=== PATIENT | female | born 1985 | race Hispanic/Latino ===

== ENCOUNTER 2017-08-15 11:54 | Outpatient (CLI) | payer OTHER | END 2017-08-15 11:55 | disposition home or self-care (01) | LOC: BICRAD 11:54 | PROVIDERS: ATTEND Internal Medicine Rheumatology | DX: M06.1 Adult-onset Still's disease (principal) | CPT/HCPCS: 71046 ==

== ENCOUNTER 2020-02-10 12:09 | Emergency (ER) | payer OTHER, SELFPAY ==
[2020-02-10 12:59] LABS: #Lymphocytes 0.5 thou/uL (1.20-3.40); #Monocytes 0.2 thou/uL (0.11-0.59); %Lymphocytes 6.9 % (21.0-51.0); %Monocytes 2.9 % (0.0-10.0); %Neutrophils 90.2 % (42.0-75.0); Hemoglobin 8.8 g/dL (12.0-16.0); Mean Corpuscular HGB CONC 31.9 g/dL (32.0-36.0); Mean Corpuscular Hemoglobin 24.4 pg (27.0-31.0); Mean Corpuscular Volume 76.5 fL (78.0-98.0); Mean Platelet Volume 9.6 fL (7.4-10.4); Platelet Count 168 thou/uL (130-400); RBC Distribution Width 16.6 % (11.5-14.5); Red Blood Cell (RBC) Count 3.58 mill/uL (4.20-5.40); White Blood Cell (WBC) Count 7.8 thou/uL (4.8-10.8)
[2020-02-10 13:19] LABS: ALT (SGPT) 11 U/L (8-55); AST (SGOT) 57 U/L (5-34); Albumin 3.4 g/dL (3.5-5.0); Alkaline Phosphatase 54 U/L (40-110); Anion Gap 13 mmol/L (10-20); BUN (Urea Nitrogen) 8 mg/dL (7.0-18.7); Bilirubin, Total 0.6 mg/dL (0.2-1.2); Calc. Creatinine Clearance 0 mL/min (70-130); Calcium 8.5 mg/dL (7.8-10.44); Carbon Dioxide 23 mmol/L (22-29); Chloride 96 mmol/L (98-107); Estimated GFR-MDRD Greater than 90; Globulin 4.9 g/dL (2.4-3.5); Glucose 88 mg/dL (70-105); Potassium 3.9 mmol/L (3.5-5.1); Protein, Total 8.3 g/dL (6.0-8.3); Sodium 128 mmol/L (136-145)
[2020-02-10] MEDS ORDERED: Acetaminophen 500 MG TAB ONE (15:37)
[2020-02-11 12:55] LABS: SARS-CoV-2 MS2 Positive; SARS-CoV-2 N Gene Negative; SARS-CoV-2 S Gene Negative; SARS-CoV-2 orf1ab Negative
== END 2020-02-10 15:53 | disposition home or self-care (01) ==
LOC: ERS 12:09
DX: E86.0 Dehydration (principal); R50.9 Fever, unspecified; D64.9 Anemia, unspecified; E03.9 Hypothyroidism, unspecified; M19.90 Unspecified osteoarthritis, unspecified site; Z20.828 Contact with and (suspected) exposure to other viral communicable diseases; Z79.899 Other long term (current) drug therapy
CPT/HCPCS: 80053; 85025; 86900; 86901; 87635; 96360; 96361; U0003

== ENCOUNTER 2020-03-02 08:37 | Emergency (ER) | payer OTHER, SELFPAY ==
[2020-03-02 09:26] LABS: #Lymphocytes 0.4 thou/uL (1.20-3.40); #Monocytes 0.1 thou/uL (0.11-0.59); %Basophils 0.1 % (0.0-1.0); %Eosinophils 0.2 % (0.0-10.0); %Lymphocytes 4.6 % (21.0-51.0); %Monocytes 1.1 % (0.0-10.0); %Neutrophils 93.9 % (42.0-75.0); Hemoglobin 10.1 g/dL (12.0-16.0); Mean Corpuscular HGB CONC 32.3 g/dL (32.0-36.0); Mean Corpuscular Hemoglobin 24.8 pg (27.0-31.0); Mean Corpuscular Volume 76.7 fL (78.0-98.0); Mean Platelet Volume 10.3 fL (7.4-10.4); Platelet Count 155 thou/uL (130-400); RBC Distribution Width 17.3 % (11.5-14.5); Red Blood Cell (RBC) Count 4.07 mill/uL (4.20-5.40); White Blood Cell (WBC) Count 9.5 thou/uL (4.8-10.8)
[2020-03-02 09:33] LABS: BHCG - Serum Negative (NEGATIVE); Pregs Control Background? CLEAR/WHITE (CLR/WHITE); Pregs Control Bar Appear? YES (CONTROL BAR)
[2020-03-02 09:50] LABS: ALT (SGPT) 14 U/L (8-55); AST (SGOT) 47 U/L (5-34); Albumin 3.8 g/dL (3.5-5.0); Alkaline Phosphatase 57 U/L (40-110); Anion Gap 14 mmol/L (10-20); BUN (Urea Nitrogen) 12 mg/dL (7.0-18.7); Bilirubin, Total 0.7 mg/dL (0.2-1.2); Calc. Creatinine Clearance 0 mL/min (70-130); Calcium 9.1 mg/dL (7.8-10.44); Carbon Dioxide 23 mmol/L (22-29); Chloride 95 mmol/L (98-107); Estimated GFR-MDRD Greater than 90; Globulin 5.2 g/dL (2.4-3.5); Glucose 98 mg/dL (70-105); Potassium 3.8 mmol/L (3.5-5.1); Sodium 128 mmol/L (136-145)
[2020-03-02 10:06] LABS: Bacteria/HPF 4+ HPF (None Seen); Bilirubin Negative (Negative); Blood, Urine 2+ (Negative); Clarity Clear (Clear); Glucose, Urine (Dipstick) Normal (Negative); Ketone, Urine Negative (Negative); Leukocyte 250 Leu/uL (Negative); Nitrite Negative (Negative); Protein, Urine (Dipstick) 10 mg/dL (Neg-Trace); RBC/HPF 0-3 HPF (0-3); Specific Gravity, Urine 1.005 (1.002-1.036); Squamous Epithelial 0-3 HPF (0-3); Urobilinogen Normal mg/dL (Less than 2)
[2020-03-02] MEDS ORDERED: cefTRIAXone\\ROCEPHIN 1 GM VIAL ONE (10:22)
--- NOTE | 2020-03-02 10:28 | RAD ---
PORTABLE CHEST: Date: 03/02/2020 HISTORY: Fever and cough. FINDINGS: The lungs appear clear. No infiltrate identified. Heart and mediastinum appear normal. IMPRESSION: No acute findings. POS: AH
[2020-03-02] MEDS ORDERED: Ondansetron PF 4 MG/2 ML Vial ONE (10:35)
[2020-03-02] MEDS ORDERED: Iopamidol-370 76% 500 ML 1 ML ONE (11:16)
--- NOTE | 2020-03-02 12:04 | CT ---
CT PULMONARY ANGIOGRAM WITH IV CONTRAST AND 3-D POSTPROCESSING: HISTORY:Fever with chills, sore throat and headache FINDINGS: There is good contrast opacification of the pulmonary arterial vasculature without filling defects to suggest pulmonary embolism. The thoracic aorta is well opacified without aneurysm or dissection. No pleural or pericardial effusions are seen. No pneumothoraces, focal areas of consolidation or lung nodules are noted. There are prominent lymph nodes subcentimeter in the axillae and retroperitoneum. IMPRESSION: No CT evidence of pulmonary embolism.
[2020-03-02 17:49] LABS: SARS-CoV-2 MS2 Positive; SARS-CoV-2 N Gene Negative; SARS-CoV-2 S Gene Negative; SARS-CoV-2 by NAA Not Detected (NotDetected); SARS-CoV-2 orf1ab Negative
== END 2020-03-02 13:25 | disposition home or self-care (01) ==
LOC: ERS 08:37
DX: J02.9 Acute pharyngitis, unspecified (principal); R50.9 Fever, unspecified; R05 Cough; R51 Headache; R11.2 Nausea with vomiting, unspecified; Z20.828 Contact with and (suspected) exposure to other viral communicable diseases; E03.9 Hypothyroidism, unspecified; Z79.899 Other long term (current) drug therapy
CPT/HCPCS: 36415; 71045; 71275; 80053; 81003; 81015; 83605; 84703; 85025; 85379; 86140; 87040; 87077; 87086; 87186; 87635; 93005; 96361; 96365; 96366; 96375; J0696; J2405; U0003

== ENCOUNTER 2020-12-21 08:55 | Inpatient (IN) | payer SELFPAY ==
[2020-12-21 10:09] LABS: Mean Corpuscular HGB CONC 33.4 g/dL (32.0-36.0); Mean Corpuscular Hemoglobin 27.1 pg (27.0-31.0); RBC Distribution Width 15.8 % (11.5-14.5); Red Blood Cell (RBC) Count 3.68 mill/uL (4.20-5.40); White Blood Cell (WBC) Count 5.4 thou/uL (4.8-10.8)
[2020-12-21] MEDS ORDERED: Ondansetron PF 4 MG/2 ML Vial ONE (10:11)
[2020-12-21] MEDS ORDERED: Lidocaine Viscous Sol 2% 15 ml UD Cup ONE (10:11)
[2020-12-21] MEDS ORDERED: Mag-Al 1200 mg/1200 mg/30 ML UDCUP ONE (10:11)
[2020-12-21 10:28] LABS: #Lymphocytes 0.7 thou/uL (1.20-3.40); #Monocytes 0.5 thou/uL (0.11-0.59); #Neutrophils 4.2 thou/uL (1.40-6.50); %Basophils 0.1 % (0.0-1.0); %Eosinophils 0.3 % (0.0-10.0); %Lymphocytes 12.7 % (21.0-51.0); %Monocytes 8.5 % (0.0-10.0); %Neutrophils 78.4 % (42.0-75.0); Anisocytosis SLIGHT = 6-15 cells (100X) (0-5/hpf); Large Platelets SLIGHT; MDiff Complete? YES; Mean Platelet Volume 15.4 fL (7.4-10.4); Platelet Count 24 thou/uL (130-400); Platelet Morphology Comment Appears Decreased; Reflex for Review?? YES; Schistocytes SLIGHT = 2-5 cells (100X) (0-1/hpf); Tear Drops SLIGHT = 2-5 cells (100X) (0-1/hpf)
[2020-12-21 10:30] LABS: ALT (SGPT) 43 U/L (8-55); AST (SGOT) 49 U/L (5-34); Albumin 3.7 g/dL (3.5-5.0); Alkaline Phosphatase 92 U/L (40-110); Anion Gap 12 mmol/L (10-20); BUN (Urea Nitrogen) 10 mg/dL (7.0-18.7); Bilirubin, Total 1.2 mg/dL (0.2-1.2); Calc. Creatinine Clearance 0 mL/min (70-130); Calcium 9.1 mg/dL (7.8-10.44); Carbon Dioxide 22 mmol/L (22-29); Chloride 102 mmol/L (98-107); Globulin 4.8 g/dL (2.4-3.5); Glucose 84 mg/dL (70-105); Lipase 14 U/L (8-78); Potassium 4.2 mmol/L (3.5-5.1); Protein, Total 8.5 g/dL (6.0-8.3); Sodium 132 mmol/L (136-145)
[2020-12-21 10:48] LABS: Bilirubin Negative (Negative); Blood, Urine Negative (Negative); Clarity Cloudy (Clear); Glucose, Urine (Dipstick) Normal (Negative); Ketone, Urine Negative (Negative); Leukocyte Negative Leu/uL (Negative); Nitrite Negative (Negative); Protein, Urine (Dipstick) 70 mg/dL (Neg-Trace); Specific Gravity, Urine 1.029 (1.002-1.036); Urobilinogen Normal mg/dL (Less than 2); WBC/HPF 0-3 HPF (0-3); pH, Urine 7.5 (5.0-9.0)
[2020-12-21 10:49] LABS: Bacteria/HPF 1+ HPF (None Seen)
[2020-12-21 10:50] LABS: Pregnancy Test - Urine (BHCG) Negative (Negative); Pregu Control Background? CLEAR/WHITE (CLR/WHITE); Pregu Control Bar Appear? YES (CONTROL BAR); Specific Gravity 1.029 (1.002-1.036)
[2020-12-21] MEDS ORDERED: Bisacodyl 5 MG TAB PO PRN (12:34)
[2020-12-21] MEDS ORDERED: Ondansetron PF 4 MG/2 ML Vial IVP PRN (12:34)
[2020-12-21 12:49] LABS: #Lymphocytes 0.7 thou/uL (1.20-3.40); #Monocytes 0.4 thou/uL (0.11-0.59); #Neutrophils 5.3 thou/uL (1.40-6.50); %Basophils 0.2 % (0.0-1.0); %Eosinophils 0.2 % (0.0-10.0); %Lymphocytes 10.1 % (21.0-51.0); %Monocytes 6.6 % (0.0-10.0); %Neutrophils 82.9 % (42.0-75.0); Hemoglobin 9.1 g/dL (12.0-16.0); Mean Corpuscular HGB CONC 34.5 g/dL (32.0-36.0); Mean Corpuscular Hemoglobin 27.8 pg (27.0-31.0); Mean Corpuscular Volume 80.6 fL (78.0-98.0); Mean Platelet Volume 15.1 fL (7.4-10.4); Platelet Count 22 thou/uL (130-400); RBC Distribution Width 15.7 % (11.5-14.5); Red Blood Cell (RBC) Count 3.29 mill/uL (4.20-5.40); White Blood Cell (WBC) Count 6.4 thou/uL (4.8-10.8)
[2020-12-21] MEDS ORDERED: Acetaminophen 500 MG TAB ONE (13:11)
[2020-12-21 13:54] VITALS: BMI 17.6
[2020-12-21 18:39] LABS: SARS-CoV-2 PCR by NAA Not Detected (NotDetected)
[2020-12-22] MEDS: Levothyroxine Sodium 50 MCG TAB PO SCH (05:41)
[2020-12-22 06:45] LABS: Hemoglobin 9.8 g/dL (12.0-16.0); Mean Corpuscular HGB CONC 34.6 g/dL (32.0-36.0); Mean Corpuscular Hemoglobin 28.1 pg (27.0-31.0); Mean Corpuscular Volume 81.3 fL (78.0-98.0); RBC Distribution Width 15.9 % (11.5-14.5); White Blood Cell (WBC) Count 3.8 thou/uL (4.8-10.8)
[2020-12-22 07:02] LABS: Anion Gap 12 mmol/L (10-20); BUN (Urea Nitrogen) 8 mg/dL (7.0-18.7); Calc. Creatinine Clearance 79 mL/min (70-130); Calcium 8.6 mg/dL (7.8-10.44); Carbon Dioxide 22 mmol/L (22-29); Chloride 104 mmol/L (98-107); Glucose 87 mg/dL (70-105); Potassium 3.9 mmol/L (3.5-5.1); Sodium 134 mmol/L (136-145)
[2020-12-22 07:26] LABS: #Eosinphils 0.1 thou/uL (0.0-0.7); #Lymphocytes 0.6 thou/uL (1.20-3.40); #Monocytes 0.4 thou/uL (0.11-0.59); #Neutrophils 2.9 thou/uL (1.40-6.50); %Basophils 0.1 % (0.0-1.0); %Eosinophils 1.3 % (0.0-10.0); %Lymphocytes 15.3 % (21.0-51.0); %Neutrophils 74.3 % (42.0-75.0); Mean Platelet Volume 14.5 fL (7.4-10.4); Platelet Count 24 thou/uL (130-400)
[2020-12-22 07:49] LABS: Poikilocytosis SLIGHT = 6-15 cells (100X) (0-5/hpf); Polychromasia SLIGHT = 2-3 cells (100X) (0-2/hpf)
[2020-12-22 07:50] LABS: Elliptocytes SLIGHT = 2-5 cells (100X) (0-1/hpf); Large Platelets SLIGHT
[2020-12-22] MEDS: Folic Acid/Vit B Comp W-C PO SCH (08:39)
[2020-12-22] MEDS ORDERED: Methotrexate Sodium 2.5 MG TAB PO SCH (10:45)
[2020-12-22] MEDS ORDERED: predniSONE 1 MG TAB PO SCH (10:45)
[2020-12-22] MEDS ORDERED: predniSONE 20 MG TAB PO SCH (10:45)
[2020-12-22] MEDS: predniSONE 1 MG TAB PO SCH (20:32)
[2020-12-23] MEDS: Levothyroxine Sodium 50 MCG TAB PO SCH (05:25)
[2020-12-23 07:12] LABS: #Lymphocytes 0.7 thou/uL (1.20-3.40); #Monocytes 0.3 thou/uL (0.11-0.59); #Neutrophils 1.8 thou/uL (1.40-6.50); %Basophils 0.3 % (0.0-1.0); %Eosinophils 0.9 % (0.0-10.0); %Neutrophils 61.8 % (42.0-75.0); Hemoglobin 9.3 g/dL (12.0-16.0); Mean Corpuscular HGB CONC 32.2 g/dL (32.0-36.0); Mean Corpuscular Hemoglobin 26.1 pg (27.0-31.0); Mean Corpuscular Volume 81.2 fL (78.0-98.0); Mean Platelet Volume 14.8 fL (7.4-10.4); Platelet Count 23 thou/uL (130-400); RBC Distribution Width 16.1 % (11.5-14.5); Red Blood Cell (RBC) Count 3.57 mill/uL (4.20-5.40); White Blood Cell (WBC) Count 2.8 thou/uL (4.8-10.8)
[2020-12-23] MEDS ORDERED: Methotrexate Sodium 2.5 MG TAB PO SCH (09:00)
[2020-12-23] MEDS: Folic Acid/Vit B Comp W-C PO SCH (09:25)
[2020-12-23] MEDS: predniSONE 1 MG TAB PO SCH (09:26)
[2020-12-23] MEDS ORDERED: Calcium Carbonate 500 MG ChewTAB PO PRN (10:33)
[2020-12-23] MEDS ORDERED: hydrALAZINE 20 MG/ML VIAL SLOW IVP PRN (10:33)
[2020-12-23] MEDS ORDERED: Sodium Chloride 0.65% Nasal 44 ML BOT EA NARE PRN (10:33)
[2020-12-23] MEDS ORDERED: Loperamide HCl 2 MG CAP PO PRN (10:33)
[2020-12-23] MEDS ORDERED: Zolpidem Tartrate 5 MG TAB PO PRN (10:33)
[2020-12-23] MEDS ORDERED: Loratadine 10 MG TAB PO PRN (10:33)
[2020-12-23] MEDS ORDERED: GUAIFENESIN SF SOLN 200 MG/10 ML UDCUP PO PRN (10:33)
[2020-12-23] MEDS ORDERED: Cepastat Lozenges 1 LOZ PO PRN (10:33)
[2020-12-23] MEDS ORDERED: diphenhydrAMINE 25 MG CAP PO PRN (10:33)
[2020-12-23] MEDS ORDERED: HYDROcodone/Acetaminophen 5/325 mg Tablet PO PRN (10:33)
[2020-12-23] MEDS ORDERED: Senokot S 8.6-50 MG TAB PO PRN (10:33)
[2020-12-23] MEDS: methylPREDNISolone Sod Succ/PF 125 MG/2 ML VIAL IVP SCH ×3 (12:03→23:49)
[2020-12-24] MEDS: methylPREDNISolone Sod Succ/PF 125 MG/2 ML VIAL IVP SCH ×4 (05:41→23:28)
[2020-12-24] MEDS: Levothyroxine Sodium 50 MCG TAB PO SCH (05:42)
[2020-12-24 06:03] LABS: #Lymphocytes 0.5 thou/uL (1.20-3.40); #Monocytes 0.1 thou/uL (0.11-0.59); #Neutrophils 4.6 thou/uL (1.40-6.50); %Eosinophils 0.1 % (0.0-10.0); %Lymphocytes 9.6 % (21.0-51.0); %Monocytes 2.4 % (0.0-10.0); %Neutrophils 87.9 % (42.0-75.0); Hemoglobin 9.5 g/dL (12.0-16.0); Mean Corpuscular HGB CONC 33.1 g/dL (32.0-36.0); Mean Corpuscular Hemoglobin 27.4 pg (27.0-31.0); Mean Corpuscular Volume 82.6 fL (78.0-98.0); Mean Platelet Volume 14.2 fL (7.4-10.4); Platelet Count 31 thou/uL (130-400); Red Blood Cell (RBC) Count 3.45 mill/uL (4.20-5.40); White Blood Cell (WBC) Count 5.3 thou/uL (4.8-10.8)
[2020-12-24 06:23] LABS: Anion Gap 10 mmol/L (10-20); BUN (Urea Nitrogen) 13 mg/dL (7.0-18.7); Calc. Creatinine Clearance 79 mL/min (70-130); Calcium 9.1 mg/dL (7.8-10.44); Carbon Dioxide 23 mmol/L (22-29); Chloride 105 mmol/L (98-107); Glucose 130 mg/dL (70-105); Sodium 134 mmol/L (136-145)
[2020-12-24 07:03] LABS: HBCM Index 0.19 S/CO (0-0.79); HBSAg Index 0.19 S/CO (0-0.99); Hep A IgM AB Non-Reactive (NonReactive); Hep A IgM S/CO 0.28 S/CO (0-0.79); Hep B Surf Ag Non-Reactive S/CO (NonReactive); Hep C IgG Ab Non-Reactive (NonReactive); Hep C Index 0.31 S/CO (0-0.79); Hepatitis B Core IgM Abs Non-Reactive (NonReactive)
[2020-12-24] MEDS: Folic Acid/Vit B Comp W-C PO SCH (09:22)
[2020-12-25] MEDS: Levothyroxine Sodium 50 MCG TAB PO SCH (05:04)
[2020-12-25] MEDS: methylPREDNISolone Sod Succ/PF 125 MG/2 ML VIAL IVP SCH (05:04)
[2020-12-25 07:02] LABS: HIV (1/2) Antibody/Antigen Non-Reactive (NonReactive); HIV 1/2 INDEX 0.11 S/CO (<1.00)
[2020-12-25 07:12] LABS: #Lymphocytes 0.8 thou/uL (1.20-3.40); #Monocytes 0.3 thou/uL (0.11-0.59); #Neutrophils 13.6 thou/uL (1.40-6.50); %Basophils 0.1 % (0.0-1.0); %Eosinophils 0.1 % (0.0-10.0); %Lymphocytes 5.3 % (21.0-51.0); %Monocytes 2.3 % (0.0-10.0); %Neutrophils 92.3 % (42.0-75.0); Anisocytosis SLIGHT = 6-15 cells (100X) (0-5/hpf); Hemoglobin 9.3 g/dL (12.0-16.0); MDiff Complete? YES; Mean Corpuscular HGB CONC 33.7 g/dL (32.0-36.0); Mean Corpuscular Hemoglobin 27.5 pg (27.0-31.0); Mean Corpuscular Volume 81.7 fL (78.0-98.0); Mean Platelet Volume 5.6 fL (7.4-10.4); Platelet Count 54 thou/uL (130-400); Platelet Morphology Comment Appears Decreased; RBC Distribution Width 16.2 % (11.5-14.5); Red Blood Cell (RBC) Count 3.37 mill/uL (4.20-5.40); White Blood Cell (WBC) Count 14.7 thou/uL (4.8-10.8)
[2020-12-25 07:46] VITALS: BP 105/71; TEMP 98
[2020-12-25] MEDS: Folic Acid/Vit B Comp W-C PO SCH (09:30)
[2020-12-27 15:07] LABS: ANA Symphony (Qualitative) POSITIVE (Negative); ANA Symphony (Quantitative) Greater than 32.0 Ratio (< 0.7 Negative); CENP IgG Antibody 0.7 EliAU/mL (<7 Negative); Jo-1 IgG Antibody 0.5 EliAU/mL (<7 Negative); RNP70 IgG Antibody 0.4 EliAU/mL (<7 Negative); SSA/Ro IgG Antibody Greater than 240.0 EliAU/mL (<7 Negative); Scleroderma-70 IgG Antibody 1.4 EliAU/mL (<7 Negative); Smith D IgG Antibody 2.5 EliAU/mL (<7 Negative); dsDNA IgG Antibody 3.4 IU/mL (<10 Negative)
== END 2020-12-25 09:59 | disposition home or self-care (01) | DRG 813 ==
LOC: ERS 08:55 → T4-A 12:26 → OBSVTOIN 12-22 15:23
PROVIDERS: ADMIT Internal Medicine; ATTEND Internal Medicine
DX: D69.59 Other secondary thrombocytopenia (principal); D61.818 Other pancytopenia; E03.9 Hypothyroidism, unspecified; M06.9 Rheumatoid arthritis, unspecified; R74.01 Elevation of levels of liver transaminase levels; R10.11 Right upper quadrant pain; R10.13 Epigastric pain; Z20.822 Contact with and (suspected) exposure to COVID-19; T45.1X5A Adverse effect of antineoplastic and immunosuppressive drugs, initial encounter
CPT/HCPCS: 36415; 74177; 76705; 80048; 80053; 80074; 81003; 81015; 81025; 83690; 84443; 85025; 85060; 86038; 86225; 86235; 87389; 87635; 96374; G0378; J2405; J2930; J7512; J8610; U0003; U0005

== ENCOUNTER 2025-02-25 01:40 | Inpatient (IN) | payer SELFPAY ==
[2025-02-25 02:04] LABS: Analyzer IN Cardio ER; Base Excess -9.9 mEq/L (-2.0 to +3.0); Calcium, Ionized (venous) 1.08 mmol/L (1.16-1.32); Chloride (VBG) 106 mmol/L (98-106); Hematocrit-VBG 28 % (36.0-47.0); Hemoglobin (Hb) 9.5 g/dL (11.7-15.5); Potassium (VBG) 4.37 mmol/L (3.70-5.30); Sodium 133 mmol/L (133-146)
[2025-02-25] MEDS ORDERED: Cefepime 2 GM VIAL ONE (02:04)
[2025-02-25 02:09] LABS: Actual Bicarbonate (HCO3v) 14.3 mEq/L (22-28)
[2025-02-25 02:16] LABS: BHCG - Serum Negative (NEGATIVE); Pregs Control Background? CLEAR/WHITE (CLR/WHITE); Pregs Control Bar Appear? YES (CONTROL BAR)
[2025-02-25 02:26] LABS: INR-International Normal Ratio 1.1; Prothrombin Time 14.1 sec (12.0-14.7)
[2025-02-25 02:27] LABS: PTT 40.0 sec (22.9-36.1)
[2025-02-25 02:29] LABS: Lipase 130 U/L (8-78); Magnesium 1.8 mg/dL (1.6-2.6)
[2025-02-25 02:30] LABS: Acetaminophen Less than 10 mcg/mL (Less than 10); Salicylate Less than 8.0 mg/dL (Less than 8.0)
[2025-02-25 02:31] LABS: ALT (SGPT) 113 U/L (Less than 34); AST (SGOT) 412 U/L (11-34); Albumin 1.8 g/dL (3.1-4.5); Alkaline Phosphatase 372 U/L (40-110); Anion Gap 20 mmol/L (10-20); BUN (Urea Nitrogen) 27 mg/dL (7.0-18.7); Bilirubin, Total 1.9 mg/dL (0.3-1.2); Calc. Creatinine Clearance 0 mL/min (70-130); Calcium 7.7 mg/dL (7.8-10.44); Carbon Dioxide 13 mmol/L (22-29); Chloride 108 mmol/L (98-107); Globulin 3.2 g/dL (2.4-3.5); Glucose 71 mg/dL (70-105); Potassium 4.6 mmol/L (3.5-5.1); Sodium 136 mmol/L (136-145); Troponin I 0.117 ng/mL (< 0.028)
[2025-02-25 02:36] LABS: Hematocrit 26.4 % (36.0-47.0); Hemoglobin 8.5 g/dL (12.0-16.0); Mean Corpuscular Hemoglobin 29.5 pg (27.0-31.0); Mean Corpuscular Volume 91.7 fL (78.0-98.0); Platelet Count 93 10x3/uL (130-400); Red Blood Cell (RBC) Count 2.88 mill/uL (4.20-5.40); White Blood Cell (WBC) Count 0.63 10x3/uL (4.8-10.8)
[2025-02-25] MEDS ORDERED: Vancomycin 1 GM/200 ML (FROZEN) BAG ONE (02:44)
[2025-02-25] MEDS ORDERED: Ketorolac Tromethamine 30 MG (1 mL) VIAL ONE (03:21)
[2025-02-25 03:47] LABS: Anisocytosis SLIGHT = 6-15 cells HPF (0-5); Burr Cells SLIGHT = 2-5 cells HPF (0-1); Macrocytosis SLIGHT = 6-15 cells HPF (0-5); Nucleated RBC (Manual Ct) 2 % (0); Ovalocytes SLIGHT = 2-5 cells HPF (0-1); Platelet Adequacy Comment Platelets Decreased; Poikilocytosis SLIGHT = 6-15 cells HPF (0-5); Smudge Cells 4.3 %
[2025-02-25] MEDS ORDERED: Electrolyte Replacement Protocol 1 EACH IVPB PRN (04:42)
[2025-02-25] MEDS ORDERED: Senokot S 8.6-50 MG TAB PO PRN (04:50)
[2025-02-25] MEDS ORDERED: Calcium Carbonate 500 MG ChewTAB PO PRN (04:50)
[2025-02-25] MEDS ORDERED: Ondansetron PF 4 MG/2 ML Vial IVP PRN (04:50)
[2025-02-25] MEDS ORDERED: Ketamine In 0.9 % NaCl 50 MG/5 ML SYRINGE ONE (05:17)
[2025-02-25] MEDS ORDERED: Rocuronium Bromide 10 MG/ML (10ML VIAL) ONE (05:18)
[2025-02-25] MEDS ORDERED: NOREPINEPHRINE 8 MG/250 ML-D5W 250 ML ONE (05:25)
[2025-02-25] MEDS ORDERED: Fentanyl BOLUS 100 ML IVPB PRN (05:45)
[2025-02-25] MEDS ORDERED: Propofol BOLUS 1,000 MG/100 ML VIAL IV PRN (05:45)
[2025-02-25] MEDS ORDERED: DISCONTINUE PREVIOUS NARCOTIC PAIN MEDICATIONS AND BENZODIAZEPINES FS SCH (05:45)
[2025-02-25 06:02] LABS: Troponin I 0.355 ng/mL (< 0.028)
[2025-02-25 06:08] LABS: Analyzer IN Cardio ER; Base Excess (BEa) -15.9 mEq/L (-2.0 to +3.0); CO2 Tension 36.2 mmHg (35.0-45.0); Calcium, Ionized (arterial) 1.18 mmol/L (1.12-1.30); Hematocrit-ABG 32 % (36.0-47.0); Hemoglobin (Hb) 10.8 g/dL (12.0-16.0); O2 Tension (PaO2), arterial 139.4 mmHg (80.0-100.0); Potassium - ABG Lab 4.76 mmol/L (3.70-5.30)
[2025-02-25 06:11] LABS: pH, Arterial 7.140 (7.35-7.45)
[2025-02-25 06:12] LABS: ALV-art Gradient 528.350 mmHg (0-20); Actual Bicarbonate (HCO3a) 12.0 mEq/L (22-28); Puncture Site Left Radial artery
[2025-02-25] MEDS ORDERED: Esmolol 2,500 MG/250 ML 250 ML ONE (06:38)
[2025-02-25 06:53] LABS: Bacteria/HPF None Seen HPF (None Seen); CAUTI Indications for Culture Alt mental st,lethar; Glucose, Urine (Dipstick) Normal (Negative); Leukocyte Negative Leu/uL (Negative); Protein, Urine (Dipstick) 100 mg/dL (Neg-Trace); RBC/HPF 0-3 HPF (0-3); Specific Gravity, Urine 1.034 (1.002-1.036)
[2025-02-25 06:55] LABS: Cocaine Metabolite Screen Negative (Negative); THC/Cannabinoid Screen Negative (Negative); Tricyclic Screen Negative (Negative); Urine Culture Reflex No No
[2025-02-25] MEDS: Ipratropium Bromide 2.5 ml Neb NEB SCH (08:21)
[2025-02-25] MEDS: Dextrose 50% Abboject 50 ML SYRINGE ONE (08:39)
[2025-02-25] MEDS: Ventilator Sedation Protocol 1 EACH FS ONE (08:48)
[2025-02-25] MEDS: Albumin 25% 25 GM (100 mL) BOT IVPB SCH (08:48)
[2025-02-25] MEDS: Pantoprazole 40 MG VIAL IVP SCH (08:48)
[2025-02-25] MEDS ORDERED: Lidocaine 1% w/Epinephrine 1:100K 20 ML VIAL ONE (09:08)
[2025-02-25] MEDS ORDERED: Sodium Bicarbonate 2.5 MEQ/5 ML SDV ONE (09:08)
[2025-02-25] MEDS: Sodium Bicarb 50 MEQ/50 ML Abboject 8.4% SYRINGE ONE ×2 (09:21→13:52)
[2025-02-25 10:46] LABS: INR-International Normal Ratio 1.5; Prothrombin Time 17.9 sec (12.0-14.7)
[2025-02-25 10:47] LABS: PTT 56.7 sec (22.9-36.1)
[2025-02-25 10:50] LABS: Base Excess (BEa) -14.3 mEq/L (-2.0 to +3.0); CO2 Tension 33.3 mmHg (35.0-45.0); Calcium, Ionized (arterial) 1.02 mmol/L (1.12-1.30); Hematocrit-ABG 24 % (36.0-47.0); Hemoglobin (Hb) 8.0 g/dL (12.0-16.0); O2 Tension (PaO2), arterial 74.4 mmHg (80.0-100.0); Potassium - ABG Lab 3.97 mmol/L (3.70-5.30)
[2025-02-25 10:55] LABS: Actual Bicarbonate (HCO3a) 12.6 mEq/L (22-28); pH, Arterial 7.195 (7.35-7.45)
[2025-02-25 10:56] LABS: ALV-art Gradient 311.775 mmHg (0-20); Puncture Site Arterial Line
[2025-02-25] MEDS: Magnesium 2 GM/50 ML(in water) 2 GM in Premix 1 BAG IVPB SCH (10:57)
[2025-02-25] MEDS: NOREPINEPHRINE 8 MG/250 ML-D5W 250 ML ONE (10:58)
[2025-02-25 11:25] LABS: Anion Gap 20 mmol/L (10-20); BUN (Urea Nitrogen) 27 mg/dL (7.0-18.7); Calc. Creatinine Clearance 38 mL/min (70-130); Calcium 6.2 mg/dL (7.8-10.44); Carbon Dioxide 13 mmol/L (22-29); Chloride 112 mmol/L (98-107); Glucose 156 mg/dL (70-105); Potassium 4.1 mmol/L (3.5-5.1); Sodium 141 mmol/L (136-145); Troponin I 0.579 ng/mL (< 0.028)
[2025-02-25 11:43] LABS: Immunoglob - A (Total IgA) 186 mg/dL (65-421); Immunoglob - G (Total IgG) 701 mg/dL (552-1631); Immunoglob - M (Total IgM) 98 mg/dL (33-293)
[2025-02-25 12:15] VITALS: BMI 16.3
[2025-02-25] MEDS: CALCIUM GLUC 1 GM/NS 50 ML 1 GM in Premix 1 BAG IVPB SCH (12:15)
[2025-02-25 12:17] LABS: Bacteria/HPF None Seen HPF (None Seen); Glucose, Urine (Dipstick) Normal (Negative); Leukocyte Negative Leu/uL (Negative); Protein, Urine (Dipstick) 100 mg/dL (Neg-Trace); RBC/HPF 0-3 HPF (0-3); Specific Gravity, Urine 1.034 (1.002-1.036)
[2025-02-25 12:28] LABS: Yeast-Budding None Seen HPF (None Seen)
[2025-02-25] MEDS ORDERED: FILGRASTIM-AYOW 480 MCG/0.8 ML SYRINGE SC SCH (12:45)
[2025-02-25] MEDS: FILGRASTIM-AYOW 480 MCG/0.8 ML SYRINGE SC SCH (13:30)
[2025-02-25] MEDS: Sodium Bicarb 50 MEQ/50 ML Abboject 8.4% SYRINGE IVP SCH ×2 (13:37→17:32)
[2025-02-25] MEDS ORDERED: Iopamidol-370 76% 500 ML MDV (1 ML CHARGE) ONE (14:11)
[2025-02-25] MEDS: Vancomycin HCl 500 MG in NaCl 0.9% 100 ML IV SCH (15:08)
[2025-02-25 16:20] LABS: Albumin 2.2 g/dL (3.1-4.5); Anion Gap 27 mmol/L (10-20); BUN (Urea Nitrogen) 29 mg/dL (7.0-18.7); BUN/Creatinine Ratio 22.48; Calc. Creatinine Clearance 38 mL/min (70-130); Calcium 6.9 mg/dL (7.8-10.44); Carbon Dioxide 19 mmol/L (22-29); Chloride 106 mmol/L (98-107); Glucose 107 mg/dL (70-105); Magnesium 2.4 mg/dL (1.6-2.6); Potassium 3.7 mmol/L (3.5-5.1); Sodium 148 mmol/L (136-145)
[2025-02-25] MEDS: Vasopressin In 0.9 % NaCl 40 UNIT in Premix 1 BAG IV SCH (17:02)
[2025-02-25] MEDS ORDERED: Hydrocortisone Sod Succ/PF 100 mg/2 ml Vial IVP SCH (17:15)
[2025-02-25] MEDS: Hydrocortisone Sod Succ/PF 100 mg/2 ml Vial IVP SCH (17:32)
[2025-02-25 17:37] LABS: ALV-art Gradient 533.075 mmHg (0-20); Actual Bicarbonate (HCO3a) 17.4 mEq/L (22-28); Base Excess (BEa) -8.0 mEq/L (-2.0 to +3.0); CO2 Tension 34.9 mmHg (35.0-45.0); Calcium, Ionized (arterial) 0.98 mmol/L (1.12-1.30); Hematocrit-ABG 23 % (36.0-47.0); Hemoglobin (Hb) 7.7 g/dL (12.0-16.0); O2 Tension (PaO2), arterial 136.3 mmHg (80.0-100.0); Potassium - ABG Lab 3.78 mmol/L (3.70-5.30); Puncture Site Arterial Line; pH, Arterial 7.315 (7.35-7.45)
[2025-02-25] MEDS: Mupirocin 1 GM TUBE TP SCH (20:06)
[2025-02-25] MEDS: NOREPINEPHRINE 8 MG/250 ML-D5W 250 ML IVPB SCH (21:10)
[2025-02-25 21:38] LABS: ALT (SGPT) 56 U/L (Less than 34); AST (SGOT) 295 U/L (11-34); Albumin 2.3 g/dL (3.1-4.5); Alkaline Phosphatase 172 U/L (40-110); Anion Gap 32 mmol/L (10-20); BUN (Urea Nitrogen) 29 mg/dL (7.0-18.7); Bilirubin, Total 3.4 mg/dL (0.3-1.2); Calc. Creatinine Clearance 32 mL/min (70-130); Calcium 6.6 mg/dL (7.8-10.44); Carbon Dioxide 18 mmol/L (22-29); Chloride 104 mmol/L (98-107); Globulin 1.7 g/dL (2.4-3.5); Glucose 100 mg/dL (70-105); Potassium 4.2 mmol/L (3.5-5.1); Sodium 150 mmol/L (136-145)
[2025-02-25 22:21] LABS: Actual Bicarbonate (HCO3a) 18.3 mEq/L (22-28); Base Excess (BEa) -5.9 mEq/L (-2.0 to +3.0); CO2 Tension 30.6 mmHg (35.0-45.0); Calcium, Ionized (arterial) 0.88 mmol/L (1.12-1.30); Hematocrit-ABG 21 % (36.0-47.0); Hemoglobin (Hb) 7.1 g/dL (12.0-16.0); O2 Tension (PaO2), arterial 76.7 mmHg (80.0-100.0); Potassium - ABG Lab 3.90 mmol/L (3.70-5.30); Puncture Site ALINE; pH, Arterial 7.395 (7.35-7.45)
[2025-02-25 22:22] LABS: ALV-art Gradient 312.850 mmHg (0-20)
[2025-02-25 23:37] LABS: INR-International Normal Ratio 1.8; Prothrombin Time 20.8 sec (12.0-14.7)
[2025-02-25 23:39] LABS: PTT 63.7 sec (22.9-36.1)
[2025-02-25 23:55] LABS: ALT (SGPT) 56 U/L (Less than 34); AST (SGOT) 304 U/L (11-34); Albumin 2.8 g/dL (3.1-4.5); Alkaline Phosphatase 159 U/L (40-110); Anion Gap 34 mmol/L (10-20); BUN (Urea Nitrogen) 29 mg/dL (7.0-18.7); Bilirubin, Total 3.4 mg/dL (0.3-1.2); Calc. Creatinine Clearance 33 mL/min (70-130); Calcium 6.6 mg/dL (7.8-10.44); Carbon Dioxide 18 mmol/L (22-29); Chloride 102 mmol/L (98-107); Globulin 1.5 g/dL (2.4-3.5); Glucose 102 mg/dL (70-105); Magnesium 2.3 mg/dL (1.6-2.6); Potassium 4.3 mmol/L (3.5-5.1); Sodium 150 mmol/L (136-145)
[2025-02-25 23:57] LABS: Hematocrit 19.4 % (36.0-47.0); Hemoglobin 6.2 g/dL (12.0-16.0); Mean Corpuscular Hemoglobin 30.1 pg (27.0-31.0); Mean Corpuscular Volume 94.2 fL (78.0-98.0); Platelet Count 30 10x3/uL (130-400); Red Blood Cell (RBC) Count 2.06 mill/uL (4.20-5.40); White Blood Cell (WBC) Count 3.90 10x3/uL (4.8-10.8)
[2025-02-26 00:07] LABS: Anisocytosis SLIGHT = 6-15 cells HPF (0-5); Nucleated RBC (Manual Ct) 1 % (0); Platelet Adequacy Comment Platelets Decreased; Poikilocytosis SLIGHT = 6-15 cells HPF (0-5); Polychromasia SLIGHT = 2-3 cells HPF (0-2)
[2025-02-26] MEDS: Hydrocortisone Sod Succ/PF 100 mg/2 ml Vial IVP SCH (00:08)
[2025-02-26 03:42] LABS: Hematocrit 27.5 % (36.0-47.0); Hemoglobin 8.9 g/dL (12.0-16.0); Mean Corpuscular Hemoglobin 30.0 pg (27.0-31.0); Mean Corpuscular Volume 92.6 fL (78.0-98.0); Platelet Count 21 10x3/uL (130-400); Red Blood Cell (RBC) Count 2.97 mill/uL (4.20-5.40); White Blood Cell (WBC) Count 6.52 10x3/uL (4.8-10.8)
[2025-02-26 03:49] LABS: INR-International Normal Ratio 1.7; Prothrombin Time 20.4 sec (12.0-14.7)
[2025-02-26 03:50] LABS: PTT 63.5 sec (22.9-36.1)
[2025-02-26 04:01] LABS: ALT (SGPT) 65 U/L (Less than 34); AST (SGOT) 350 U/L (11-34); Albumin 2.6 g/dL (3.1-4.5); Alkaline Phosphatase 161 U/L (40-110); Anion Gap 25 mmol/L (10-20); BUN (Urea Nitrogen) 23 mg/dL (7.0-18.7); Bilirubin, Total 3.9 mg/dL (0.3-1.2); Calc. Creatinine Clearance 46 mL/min (70-130); Calcium 7.3 mg/dL (7.8-10.44); Carbon Dioxide 19 mmol/L (22-29); Chloride 105 mmol/L (98-107); Globulin 1.6 g/dL (2.4-3.5); Glucose 65 mg/dL (70-105); Magnesium 2.0 mg/dL (1.6-2.6); Potassium 4.2 mmol/L (3.5-5.1); Sodium 145 mmol/L (136-145)
[2025-02-26 04:27] LABS: Anisocytosis SLIGHT = 6-15 cells HPF (0-5); Burr Cells SLIGHT = 2-5 cells HPF (0-1); Nucleated RBC (Manual Ct) 1 % (0); Platelet Adequacy Comment Platelets Decreased; Polychromasia SLIGHT = 2-3 cells HPF (0-2); Smudge Cells 2.1 %; Toxic Granulation SLIGHT
[2025-02-26] MEDS ORDERED: Glucagon 1 MG/ML KIT IM PRN (04:46)
[2025-02-26] MEDS: Dextrose 50% Abboject 50 ML SYRINGE SLOW IVP PRN (04:50)
[2025-02-26] MEDS: Magnesium 2 GM/50 ML(in water) 2 GM in Premix 1 BAG IVPB SCH (05:45)
[2025-02-26] MEDS: Dextrose 50% Abboject 50 ML SYRINGE ONE (05:46)
[2025-02-26 07:37] LABS: Actual Bicarbonate (HCO3a) 17.1 mEq/L (22-28); Base Excess (BEa) -7.3 mEq/L (-2.0 to +3.0); CO2 Tension 31.0 mmHg (35.0-45.0); Calcium, Ionized (arterial) 1.11 mmol/L (1.12-1.30); Hematocrit-ABG 32 % (36.0-47.0); Hemoglobin (Hb) 10.8 g/dL (12.0-16.0); O2 Tension (PaO2), arterial 86.1 mmHg (80.0-100.0); Potassium - ABG Lab 4.27 mmol/L (3.70-5.30); pH, Arterial 7.360 (7.35-7.45)
[2025-02-26 07:43] LABS: ALV-art Gradient 374.250 mmHg (0-20); Puncture Site Arterial Line
[2025-02-26] MEDS: Folic Acid 1 MG TAB PO SCH (09:44)
[2025-02-26] MEDS: FILGRASTIM-AYOW 480 MCG/0.8 ML SYRINGE SC SCH (10:40)
[2025-02-26 10:47] LABS: Platelet Count 10 10x3/uL (130-400)
[2025-02-26] MEDS: Vancomycin HCl 500 MG in NaCl 0.9% 100 ML IV SCH ×2 (13:38→23:15)
[2025-02-26 15:00] LABS: Hematocrit 29.2 % (36.0-47.0); Hemoglobin 9.9 g/dL (12.0-16.0); Mean Corpuscular Hemoglobin 29.6 pg (27.0-31.0); Mean Corpuscular Volume 87.4 fL (78.0-98.0); Platelet Count 65 10x3/uL (130-400); Red Blood Cell (RBC) Count 3.34 mill/uL (4.20-5.40); White Blood Cell (WBC) Count 8.69 10x3/uL (4.8-10.8)
[2025-02-26 15:06] LABS: ALT (SGPT) 64 U/L (Less than 34); AST (SGOT) 332 U/L (11-34); Albumin 3.0 g/dL (3.1-4.5); Alkaline Phosphatase 155 U/L (40-110); Anion Gap 20 mmol/L (10-20); BUN (Urea Nitrogen) 13 mg/dL (7.0-18.7); Bilirubin, Direct 5.3 mg/dL (0.1-0.3); Bilirubin, Total 6.8 mg/dL (0.3-1.2); Calc. Creatinine Clearance 83 mL/min (70-130); Calcium 7.8 mg/dL (7.8-10.44); Carbon Dioxide 19 mmol/L (22-29); Chloride 107 mmol/L (98-107); Glucose 79 mg/dL (70-105); Potassium 4.5 mmol/L (3.5-5.1); Sodium 141 mmol/L (136-145)
[2025-02-26 15:32] LABS: Anisocytosis SLIGHT = 6-15 cells HPF (0-5); Nucleated RBC (Manual Ct) 2 % (0); Ovalocytes SLIGHT = 2-5 cells HPF (0-1); Platelet Adequacy Comment Platelets Decreased; Poikilocytosis SLIGHT = 6-15 cells HPF (0-5)
[2025-02-26 20:46] LABS: Anion Gap 16 mmol/L (10-20); BUN (Urea Nitrogen) 9 mg/dL (7.0-18.7); Calc. Creatinine Clearance 109 mL/min (70-130); Calcium 7.9 mg/dL (7.8-10.44); Carbon Dioxide 19 mmol/L (22-29); Chloride 109 mmol/L (98-107); Glucose 70 mg/dL (70-105); Potassium 4.6 mmol/L (3.5-5.1); Sodium 139 mmol/L (136-145)
[2025-02-27 01:02] LABS: Anion Gap 18 mmol/L (10-20); BUN (Urea Nitrogen) 9 mg/dL (7.0-18.7); Calc. Creatinine Clearance 107 mL/min (70-130); Calcium 7.8 mg/dL (7.8-10.44); Carbon Dioxide 21 mmol/L (22-29); Chloride 106 mmol/L (98-107); Glucose 62 mg/dL (70-105); Magnesium 1.9 mg/dL (1.6-2.6); Potassium 4.8 mmol/L (3.5-5.1); Sodium 140 mmol/L (136-145)
[2025-02-27] MEDS: Digoxin 0.5 MG/2 ML AMP SLOW IVP SCH (01:54)
[2025-02-27] MEDS: Metoprolol Tartrate 5 MG (5 mL) VIAL IVP SCH ×2 (01:58→19:01)
[2025-02-27 02:24] LABS: Hematocrit 32.2 % (36.0-47.0); Hemoglobin 11.1 g/dL (12.0-16.0); Mean Corpuscular Hemoglobin 30.0 pg (27.0-31.0); Mean Corpuscular Volume 87.0 fL (78.0-98.0); Platelet Count 8 10x3/uL (130-400); Red Blood Cell (RBC) Count 3.70 mill/uL (4.20-5.40); White Blood Cell (WBC) Count 8.64 10x3/uL (4.8-10.8)
[2025-02-27 02:32] LABS: INR-International Normal Ratio 1.3; Prothrombin Time 16.3 sec (12.0-14.7)
[2025-02-27 02:33] LABS: PTT 40.3 sec (22.9-36.1)
[2025-02-27 02:33] LABS: Vancomycin, Random 26.8 ug/mL (See Comment)
[2025-02-27 02:37] LABS: ALT (SGPT) 64 U/L (Less than 34); AST (SGOT) 325 U/L (11-34); Albumin 2.4 g/dL (3.1-4.5); Alkaline Phosphatase 136 U/L (40-110); Anion Gap 17 mmol/L (10-20); BUN (Urea Nitrogen) 9 mg/dL (7.0-18.7); Bilirubin, Total 7.0 mg/dL (0.3-1.2); Calc. Creatinine Clearance 116 mL/min (70-130); Calcium 7.5 mg/dL (7.8-10.44); Carbon Dioxide 19 mmol/L (22-29); Chloride 108 mmol/L (98-107); Globulin 1.7 g/dL (2.4-3.5); Glucose 149 mg/dL (70-105); Magnesium 1.8 mg/dL (1.6-2.6); Potassium 4.7 mmol/L (3.5-5.1); Sodium 139 mmol/L (136-145)
[2025-02-27] MEDS: Albumin 25% 25 GM (100 mL) BOT IVPB SCH (03:17)
[2025-02-27] MEDS: Sodium Bicarb 50 MEQ/50 ML Abboject 8.4% SYRINGE IVP SCH ×3 (03:17→17:53)
[2025-02-27] MEDS: Magnesium 2 GM/50 ML(in water) 2 GM in Premix 1 BAG IVPB SCH (03:17)
[2025-02-27 03:20] LABS: Anisocytosis MODERATE=16-30 cells HPF (0-5); Burr Cells SLIGHT = 2-5 cells HPF (0-1); Macrocytosis SLIGHT = 6-15 cells HPF (0-5); Nucleated RBC (Manual Ct) 1 % (0); Ovalocytes SLIGHT = 2-5 cells HPF (0-1); Platelet Adequacy Comment Significant Decrease; Smudge Cells 1.4 %
[2025-02-27 05:20] VITALS: BMI 18.9
[2025-02-27 09:26] LABS: Critical Call Chem-Lactate PHA.AAOt
[2025-02-27] MEDS ORDERED: Iopamidol 370 76% 100 ML VIAL ONE (09:34)
[2025-02-27 10:12] LABS: Hematocrit 26.3 % (36.0-47.0); Hemoglobin 8.8 g/dL (12.0-16.0); Mean Corpuscular Hemoglobin 29.5 pg (27.0-31.0); Mean Corpuscular Volume 88.3 fL (78.0-98.0); Platelet Count 18 10x3/uL (130-400); Red Blood Cell (RBC) Count 2.98 mill/uL (4.20-5.40); White Blood Cell (WBC) Count 12.05 10x3/uL (4.8-10.8)
[2025-02-27 10:28] LABS: ALT (SGPT) 58 U/L (Less than 34); AST (SGOT) 294 U/L (11-34); Albumin 3.2 g/dL (3.1-4.5); Alkaline Phosphatase 126 U/L (40-110); Anion Gap 18 mmol/L (10-20); BUN (Urea Nitrogen) 8 mg/dL (7.0-18.7); Bilirubin, Direct 5.3 mg/dL (0.1-0.3); Calc. Creatinine Clearance 136 mL/min (70-130); Calcium 8.4 mg/dL (7.8-10.44); Carbon Dioxide 18 mmol/L (22-29); Chloride 108 mmol/L (98-107); Glucose 64 mg/dL (70-105); Potassium 4.7 mmol/L (3.5-5.1); Sodium 139 mmol/L (136-145)
[2025-02-27 10:39] LABS: Burr Cells SLIGHT = 2-5 cells HPF (0-1); Macrocytosis SLIGHT = 6-15 cells HPF (0-5); Ovalocytes MODERATE= 6-15 cells HPF (0-1); Platelet Adequacy Comment Significant Decrease; Polychromasia SLIGHT = 2-3 cells HPF (0-2)
[2025-02-27 10:47] LABS: Bilirubin, Total 7.5 mg/dL (0.3-1.2); Magnesium 2.2 mg/dL (1.6-2.6)
[2025-02-27] MEDS: Potassium Phosphate 30 MMOL in Sodium Chloride 0.9% 250 ML 250 ML IVPB SCH (12:24)
[2025-02-27] MEDS: Vancomycin HCl 750 MG in Sodium Chloride 0.9% 250 ML 250 ML IVPB SCH ×2 (13:18→21:51)
[2025-02-27 15:24] LABS: Hematocrit 23.9 % (36.0-47.0); Hemoglobin 8.3 g/dL (12.0-16.0); Mean Corpuscular Hemoglobin 31.7 pg (27.0-31.0); Mean Corpuscular Volume 91.2 fL (78.0-98.0); Platelet Count 70 10x3/uL (130-400); Red Blood Cell (RBC) Count 2.62 mill/uL (4.20-5.40); White Blood Cell (WBC) Count 10.23 10x3/uL (4.8-10.8)
[2025-02-27 15:27] LABS: Anion Gap 20 mmol/L (10-20); BUN (Urea Nitrogen) 8 mg/dL (7.0-18.7); Calc. Creatinine Clearance 139 mL/min (70-130); Calcium 8.1 mg/dL (7.8-10.44); Carbon Dioxide 19 mmol/L (22-29); Chloride 106 mmol/L (98-107); Glucose 140 mg/dL (70-105); Potassium 4.6 mmol/L (3.5-5.1); Sodium 140 mmol/L (136-145)
[2025-02-27 15:54] LABS: Anisocytosis SLIGHT = 6-15 cells HPF (0-5); Nucleated RBC (Manual Ct) 2 % (0); Ovalocytes MODERATE= 6-15 cells HPF (0-1); Platelet Adequacy Comment Platelets Decreased; Poikilocytosis SLIGHT = 6-15 cells HPF (0-5); Polychromasia SLIGHT = 2-3 cells HPF (0-2)
[2025-02-27] MEDS ORDERED: Rocuronium Bromide 10 MG/ML (10ML VIAL) ONE (21:03)
[2025-02-27] MEDS ORDERED: Bupivacaine 0.25% HCL 30 ML VIAL ONE (21:06)
[2025-02-28 01:42] LABS: Anion Gap 26 mmol/L (10-20); BUN (Urea Nitrogen) 10 mg/dL (7.0-18.7); Calc. Creatinine Clearance 92 mL/min (70-130); Calcium 7.7 mg/dL (7.8-10.44); Carbon Dioxide 16 mmol/L (22-29); Chloride 105 mmol/L (98-107); Glucose 63 mg/dL (70-105); Magnesium 1.9 mg/dL (1.6-2.6); Potassium 5.3 mmol/L (3.5-5.1); Sodium 142 mmol/L (136-145)
[2025-02-28 04:26] LABS: Hematocrit 29.0 % (36.0-47.0); Hemoglobin 9.5 g/dL (12.0-16.0); Mean Corpuscular Hemoglobin 31.3 pg (27.0-31.0); Mean Corpuscular Volume 95.4 fL (78.0-98.0); Platelet Count 82 10x3/uL (130-400); Red Blood Cell (RBC) Count 3.04 mill/uL (4.20-5.40); White Blood Cell (WBC) Count 18.07 10x3/uL (4.8-10.8)
[2025-02-28 05:06] LABS: ALT (SGPT) 69 U/L (Less than 34); AST (SGOT) 357 U/L (11-34); Albumin 3.1 g/dL (3.1-4.5); Alkaline Phosphatase 163 U/L (40-110); Anion Gap 26 mmol/L (10-20); BUN (Urea Nitrogen) 9 mg/dL (7.0-18.7); Bilirubin, Total 6.3 mg/dL (0.3-1.2); Calc. Creatinine Clearance 91 mL/min (70-130); Calcium 7.7 mg/dL (7.8-10.44); Carbon Dioxide 16 mmol/L (22-29); Chloride 104 mmol/L (98-107); Globulin 2.3 g/dL (2.4-3.5); Glucose 93 mg/dL (70-105); Iron 95 ug/dL (50-170); Iron Binding Capacity, Total 160 mcg/dL (265-497); Magnesium 1.9 mg/dL (1.6-2.6); Potassium 5.3 mmol/L (3.5-5.1); Sodium 141 mmol/L (136-145)
[2025-02-28 05:07] LABS: Cardiac Risk 6.5 (Less than 4.5); Cholesterol 78 mg/dl (< 200 Desired); HDL Cholesterol 12 mg/dL (>60 Neg Risk); Iron Binding Capacity, Total 159 mcg/dL (265-497); LDL Cholesterol, Calculated 24 mg/dL; Triglycerides 211 mg/dL (Less than 150)
[2025-02-28 05:23] LABS: Burr Cells SLIGHT = 2-5 cells HPF (0-1); Nucleated RBC (Manual Ct) 1 % (0); Platelet Adequacy Comment Platelets Decreased; Poikilocytosis SLIGHT = 6-15 cells HPF (0-5); Polychromasia SLIGHT = 2-3 cells HPF (0-2); Smudge Cells 0.9 %; Toxic Granulation SLIGHT
[2025-02-28 07:22] LABS: Actual Bicarbonate (HCO3a) 16.9 mEq/L (22-28); Base Excess (BEa) -6.8 mEq/L (-2.0 to +3.0); CO2 Tension 29.0 mmHg (35.0-45.0); Calcium, Ionized (arterial) 1.09 mmol/L (1.12-1.30); Hematocrit-ABG 39 % (36.0-47.0); Hemoglobin (Hb) 13.1 g/dL (12.0-16.0); O2 Tension (PaO2), arterial 72.1 mmHg (80.0-100.0); Potassium - ABG Lab 4.92 mmol/L (3.70-5.30); pH, Arterial 7.383 (7.35-7.45)
[2025-02-28 07:25] LABS: Puncture Site ARTLINE
[2025-02-28 07:27] LABS: ALV-art Gradient 319.450 mmHg (0-20)
[2025-02-28] MEDS: Magnesium 2 GM/50 ML(in water) 2 GM in Premix 1 BAG IVPB SCH (08:20)
[2025-02-28] MEDS ORDERED: CRRT- NOTIFY PHARMACY FS PRN (09:15)
[2025-02-28 11:11] LABS: Vancomycin, Trough 46.0 ug/mL
[2025-02-28 11:44] LABS: Anion Gap 20 mmol/L (10-20); BUN (Urea Nitrogen) 10 mg/dL (7.0-18.7); Calc. Creatinine Clearance 99 mL/min (70-130); Calcium 8.0 mg/dL (7.8-10.44); Carbon Dioxide 19 mmol/L (22-29); Chloride 108 mmol/L (98-107); Glucose 75 mg/dL (70-105); Magnesium 1.7 mg/dL (1.6-2.6); Potassium 5.1 mmol/L (3.5-5.1); Sodium 142 mmol/L (136-145)
[2025-02-28] MEDS: EPOETIN ALFA-EPBX (ESRD) 10,000 UNITS/ML VIAL SC SCH (12:07)
[2025-02-28 14:19] LABS: Anion Gap 19 mmol/L (10-20); BUN (Urea Nitrogen) 11 mg/dL (7.0-18.7); Calc. Creatinine Clearance 100 mL/min (70-130); Calcium 7.8 mg/dL (7.8-10.44); Carbon Dioxide 18 mmol/L (22-29); Chloride 107 mmol/L (98-107); Glucose 123 mg/dL (70-105); Magnesium 2.0 mg/dL (1.6-2.6); Potassium 4.6 mmol/L (3.5-5.1); Sodium 139 mmol/L (136-145)
[2025-02-28 14:38] LABS: Parvovirus B19 IgM ABS 0.1 index (0.0-0.8)
[2025-02-28] MEDS: Sodium Phosphate 40 MMOL in Sodium Chloride 0.9% 250 ML 250 ML IVPB SCH (16:29)
[2025-02-28 16:38] LABS: CMV DNA-PCR Test Positive < 200 IU/mL (Negative)
[2025-02-28] MEDS: Privigen 40 GM, Privigen 10 GM in Admixture Fee 1 EACH IVPB SCH (19:33)
[2025-02-28 20:17] LABS: Vancomycin, Trough 18.3 ug/mL
[2025-02-28 20:37] VITALS: TEMP 96.8
[2025-02-28 21:36] LABS: CAUTI Indications for Culture Alt mental st,lethar; Glucose, Urine (Dipstick) 70 mg/dL (Negative); Leukocyte Negative Leu/uL (Negative); Protein, Urine (Dipstick) 300 mg/dL (Neg-Trace); RBC/HPF 21-50 HPF (0-3)
[2025-02-28 21:44] LABS: Bacteria/HPF 4+ HPF (None Seen); Specific Gravity, Urine Greater than 1.050 (1.002-1.036)
[2025-02-28 21:46] LABS: Urine Culture Reflex Yes Yes
[2025-02-28 22:10] VITALS: BP 104/76
[2025-03-01 04:12] LABS: EBV VCA IgM 81.4 U/mL (0.0-35.9); Nuclear AG IgG (EBNA) AB <18.0 U/mL (0.0-17.9)
[2025-03-01 09:38] LABS: Epstein Barr Virus PCR Positive (Negative)
[2025-03-01 14:37] LABS: ANA Symphony (Qualitative) POSITIVE (Negative); ANA Symphony (Quantitative) 16.0 Ratio (< 0.7 Negative); CENP IgG Antibody 0.4 EliAU/mL (<7 Negative); EliA APS New Method **** NEW METHOD ****; Mitochondrial Ab 1.3 U/mL (<4 Negative); RNP70 IgG Antibody 0.8 EliAU/mL (<7 Negative); SSA/Ro IgG Antibody 157.0 EliAU/mL (<7 Negative); SSB/La IgG Antibody Less than 0.4 EliAU/mL (<7 Negative); Scleroderma-70 IgG Antibody Less than 0.6 EliAU/mL (<7 Negative); Thyroid Peroxidase IgG Ab Less than 4.0 IU/mL (<25 Normal); U1RNP IgG Antibody 1.2 EliAU/mL (<5 Negative); beta-2-Glycoprotein I IgA Ab 2.8 U/mL (<7 Negative); beta-2-Glycoprotein I IgG Ab 1.1 U/mL (<7 Negative); beta-2-Glycoprotein I IgM Abs Less than 2.4 U/mL (<7 Negative); dsDNA IgG Antibody 9.0 IU/mL (<10 Negative)
[2025-03-01 14:42] LABS: Smith D IgG Antibody Less than 0.7 EliAU/mL (<7 Negative)
[2025-03-02 17:37] LABS: CMV DNA-PCR Test Negative (Negative)
== END 2025-02-28 23:00 | disposition short-term general hospital (02) | DRG 853 ==
LOC: ERS 01:40 → CCU 04:47
PROVIDERS: ADMIT Internal Medicine; ATTEND Internal Medicine
PROC: 0F9430Z Drainage of Gallbladder with Drainage Device, Percutaneous Approach (ICD-10-PCS; principal; 2025-02-25)
PROC: 0BH17EZ Insertion of Endotracheal Airway into Trachea, Via Natural or Artificial Opening (ICD-10-PCS; 2025-02-25)
PROC: 06HN33Z Insertion of Infusion Device into Left Femoral Vein, Percutaneous Approach (ICD-10-PCS; 2025-02-25)
PROC: 5A1945Z Respiratory Ventilation, 24-96 Consecutive Hours (ICD-10-PCS; 2025-02-25)
PROC: 3E03329 Introduction of Other Anti-infective into Peripheral Vein, Percutaneous Approach (ICD-10-PCS; 2025-02-25)
PROC: 30233J1 Transfusion of Nonautologous Serum Albumin into Peripheral Vein, Percutaneous Approach (ICD-10-PCS; 2025-02-25)
PROC: 04HY32Z Insertion of Monitoring Device into Lower Artery, Percutaneous Approach (ICD-10-PCS; 2025-02-25)
PROC: 4A133B1 Monitoring of Arterial Pressure, Peripheral, Percutaneous Approach (ICD-10-PCS; 2025-02-25)
PROC: 4A133J1 Monitoring of Arterial Pulse, Peripheral, Percutaneous Approach (ICD-10-PCS; 2025-02-25)
PROC: 0T9B70Z Drainage of Bladder with Drainage Device, Via Natural or Artificial Opening (ICD-10-PCS; 2025-02-25)
PROC: 4A133R1 Monitoring of Arterial Saturation, Peripheral, Percutaneous Approach (ICD-10-PCS; 2025-02-25)
PROC: 0B9B8ZZ Drainage of Left Lower Lobe Bronchus, Via Natural or Artificial Opening Endoscopic (ICD-10-PCS; 2025-02-25)
PROC: 30233N1 Transfusion of Nonautologous Red Blood Cells into Peripheral Vein, Percutaneous Approach (ICD-10-PCS; 2025-02-26)
PROC: 6A551Z2 Pheresis of Platelets, Multiple (ICD-10-PCS; 2025-02-26)
PROC: 0D9670Z Drainage of Stomach with Drainage Device, Via Natural or Artificial Opening (ICD-10-PCS; 2025-02-26)
PROC: 5A1D90Z Performance of Urinary Filtration, Continuous, Greater than 18 hours Per Day (ICD-10-PCS; 2025-02-26)
PROC: 0W9G40Z Drainage of Peritoneal Cavity with Drainage Device, Percutaneous Endoscopic Approach (ICD-10-PCS; 2025-02-27)
PROC: 3E033XZ Introduction of Vasopressor into Peripheral Vein, Percutaneous Approach (ICD-10-PCS; 2025-02-27)
PROC: 30233R1 Transfusion of Nonautologous Platelets into Peripheral Vein, Percutaneous Approach (ICD-10-PCS; 2025-02-27)
PROC: 30233K1 Transfusion of Nonautologous Frozen Plasma into Peripheral Vein, Percutaneous Approach (ICD-10-PCS; 2025-02-27)
PROC: 30233L1 Transfusion of Nonautologous Fresh Plasma into Peripheral Vein, Percutaneous Approach (ICD-10-PCS; 2025-02-28)
DX: A40.3 Sepsis due to Streptococcus pneumoniae (principal); E43 Unspecified severe protein-calorie malnutrition; J96.01 Acute respiratory failure with hypoxia; J18.9 Pneumonia, unspecified organism; R65.21 Severe sepsis with septic shock; N18.6 End stage renal disease; J69.0 Pneumonitis due to inhalation of food and vomit; N17.0 Acute kidney failure with tubular necrosis; D61.818 Other pancytopenia; E87.21 Acute metabolic acidosis; K81.0 Acute cholecystitis; E87.0 Hyperosmolality and hypernatremia; I50.22 Chronic systolic (congestive) heart failure; I13.2 Hypertensive heart and chronic kidney disease with heart failure and with stage 5 chronic kidney disease, or end stage renal disease; R18.8 Other ascites; I24.89 Other forms of acute ischemic heart disease; R64 Cachexia; M06.9 Rheumatoid arthritis, unspecified; I48.91 Unspecified atrial fibrillation; B27.00 Gammaherpesviral mononucleosis without complication; D63.1 Anemia in chronic kidney disease; E03.9 Hypothyroidism, unspecified; E78.5 Hyperlipidemia, unspecified; M32.9 Systemic lupus erythematosus, unspecified; R13.10 Dysphagia, unspecified; E80.6 Other disorders of bilirubin metabolism; F50.89 Other specified eating disorder; K52.9 Noninfective gastroenteritis and colitis, unspecified; Z68.21 Body mass index [BMI] 21.0-21.9, adult; Z98.891 History of uterine scar from previous surgery; Z88.0 Allergy status to penicillin; Z83.3 Family history of diabetes mellitus; Z79.899 Other long term (current) drug therapy; Z78.1 Physical restraint status; R16.0 Hepatomegaly, not elsewhere classified; F50.9 Eating disorder, unspecified; K74.60 Unspecified cirrhosis of liver; K76.0 Fatty (change of) liver, not elsewhere classified; E83.39 Other disorders of phosphorus metabolism; K76.89 Other specified diseases of liver; I08.1 Rheumatic disorders of both mitral and tricuspid valves; R54 Age-related physical debility; E87.5 Hyperkalemia
CPT/HCPCS: 31500; 36415; 36416; 36430; 36600; 47490; 51702; 71045; 71275; 74018; 74177; 76705; 76942; 80053; 80061; 80202; 80306; 80307; 81001; 82140; 82306; 82533; 82728; 82805; 83516; 83540; 83550; 83605; 83690; 83735; 83970; 84100; 84145; 84156; 84443; 84484; 84703; 85025; 85384; 85598; 85610; 85613; 85730; 86038; 86141; 86146; 86147; 86160; 86162; 86225; 86235; 86376; 86664; 86665; 86747; 86850; 86900; 86901; 87040; 87070; 87077; 87086; 87102; 87149; 87186; 87205; 87449; 87497; 87633; 87798; 93005; 93010; 93306; 94002; 94003; 94640; 94660; 96365; 96366; 96367; 96375; C1729; C1769; J0169; J0613; J0665; J0692; J1160; J1447; J1459; J1720; J1885; J2250; J2470; J2919; J3373; J3475; J3490; J7030; J7050; J7070; J7626; J7644; J7999; P9016; P9035; P9047; P9059; Q5105; Q9967